=== PATIENT | female | born 1970 | race Hispanic/Latino ===

== ENCOUNTER 2023-09-07 13:36 | Emergency (ER) | payer MEDICARE, OTHER ==
[~2023-09-07] VITALS: Ht 152.4 cm; Wt 56.7 kg
[2023-09-07 14:13] VITALS: BP 130/73; PULSE 50; RESP 16; O2SAT 100
== END 2023-09-07 16:11 | disposition left against medical advice (07) ==
LOC: EDH 13:36
DX: L03.113 Cellulitis of right upper limb (principal); Z53.21 Procedure and treatment not carried out due to patient leaving prior to being seen by health care provider
CPT/HCPCS: 99281